=== PATIENT | female | born 1950 | race Caucasian/White ===

== ENCOUNTER 2018-07-10 10:43 | Outpatient (REF) | payer MEDICARE ==
[~2018-07-10 10:43] MED LIST: BAYER ASA325 MG PO; BUSPAR10 M1 OR; BUSPAR15 M1 OR; DIOVAN80 MG OR; ENALAPRIL10 MG PO; EQ ASPIRIN325 M1 OR; METOPROLOL TART50 MG PO; METOPROLOL25 M1 OR; PERCOCET 5/321 COMBO PO; PRILOSEC20 MG/CAP PO; PROZAC20 MG OR; PROZAC20 MG PO; PROZAC40 MG PO; TRAMADOL HCL E100 M1 PO; TRIAM/HCTZ1 CAP OR; ULTRAM50 M1 PO; VENOFER20 MG/ML IV; XANAX0.5 MG PO
[2018-07-10 11:21] LABS: HEMATOCRIT 33.6 % (37.0-47.0); HEMOGLOBIN 10.3 g/dl (12.0-16.0); IMMATURE GRANULOCYTES 0.5 % (0.0-5.0); MEAN CELL VOLUME 99.1 fL CALC (80.0-100.0); MEAN CORPUSCULAR HGB 30.4 pG CALC (26.0-32.0); MEAN CORPUSCULAR HGB CONC 30.7 g/L CALC (32.0-36.0); NEUT# 5.83 thou/uL (2.00-7.15); RED BLOOD COUNT 3.39 mill/uL (4.20-5.60); RED CELL DISTRI WIDTH 15.1 % (11.5-15.5)
[2018-07-10 11:44] LABS: ALBUMIN 3.8 g/dL (3.2-5.0); CREATININE 3.4 mg/dL (0.5-1.0)
[2018-07-10 11:45] LABS: POTASSIUM 5.8 mmol/l (3.5-5.1)
--- NOTE | 2018-07-10 12:03 | NUR ---
Patient is here for Procrit injection Current Procrit dose of 8,000 units on 07/10/18, Previous Procrit dose of 8,000 units on 06/05/18 Current Hgb on 07/10/18: 10.3 g/dL Previous Hgb on 05/05/18: 11.4 g/dL Iron study on 07/10/18: %Saturation: 43%, Ferritin: 175 ng/mL Next Iron Study on: 10/08/18 Next Hgb due on: 08/07/18 Pt will come back for next dose of 8,000 units on 08/07/18 Notes: Pt stated she is feeling good overall w/no side effects noted. Claims she could feel that her hemoglobin came down from last time. Educated her about Hgb goal of 10-11 and that we want to try and keep her within the range she is now. Pt BP today was 158/70 mmHg. Pt acknowledged risks associated with her Hgb being too high and BP too high. There were no further questions and she is aware pharmacy staff is always available to answer any questions about her therapy. Pt to return in 4 weeks for labs and Procrit dose. QOL assessment Side effects: No Dose adjustments: No
[2018-07-10 12:34] VITALS: BP 158/70
== END 2018-07-10 14:31 | disposition home or self-care (01) ==
LOC: INF 10:43
PROVIDERS: ATTEND Internal Medicine Nephrology
DX: D63.1 Anemia in chronic kidney disease (principal); D50.9 Iron deficiency anemia, unspecified; N18.9 Chronic kidney disease, unspecified; N18.4 Chronic kidney disease, stage 4 (severe)
CPT/HCPCS: J0885